=== PATIENT | female | born 1995 | race Caucasian/White ===

== ENCOUNTER 2016-10-24 16:21 | Emergency (ER) | payer OTHER ==
[2016-10-24 16:33] VITALS: BP 146/73
[2016-10-24] MEDS ORDERED: KETOROLAC TROMETHAMINE 60 MG/2 ML VIAL IM ONE ×2 (17:11→17:18)
--- NOTE | 2016-10-24 17:27 | ERNOTE ---
Lower Extremity HPI - Narrative Date of Service: 10/24/16 - General Lower Extremities Pain: knee: left, thigh: left Time Seen by Provider: 10/24/16 17:02 Source: patient, RN notes reviewed Exam Limitations: no limitations - Immun/Allergies/Home Medications Immunizations: IMMUNIZATION HX Immunizations Up to Date Yes History of Influenza Vaccine Yes Allergies/Adverse Reactions: Allergies Allergy/AdvReac Type Severity Reaction Status Date / Time amoxicillin Allergy Verified 10/24/16 16:34 Sulfa (Sulfonamide Allergy Verified 10/24/16 16:34 Antibiotics) Home Medications: HOME MEDICATIONS Cyclobenzaprine HCl [Flexeril] 10 mg PO TID PRN #30 tab 10/24/16 [Last Taken Unknown] Ibuprofen [Motrin] 600 mg PO Q6H PRN #40 tab 10/24/16 [Last Taken Unknown] - History of Present Illness Narrative: 20 y/o female ambulatory to the ED for pain in her left knee that began yesterday. There was no injury, nor has she had problems with this knee in the past. Later in the day, her pain began radiating up the lateral thigh, into her back. She is now having pain in the right lumbar region. She has been taking ibuprofen for pain without improvement. Occurred: yesterday Method of Injury: Reports: no apparent injury Subsequent Symptoms: Denies: sensory loss, numbness, motor loss Prior Treament: Denies: similar symptoms before Review of Systems - Review of Systems Constitutional: Absent: recent illness, fever, chills EYE: Present: no symptoms reported ENT: Present: no symptoms reported Respiratory: Absent: shortness of breath, cough Cardiology: Absent: chest pain, edema Gastrointestinal/Abdominal: Present: no symptoms reported Genitourinary: Present: hematuria. Absent: other - possible Musculoskeletal: Present: back pain, muscle pain, joint pain. Absent: muscle stiffness, neck pain, joint swelling Skin: Absent: rash, lesions, lumps Neurological: Absent: headache, dizziness/light-headedness, weakness, numbness, tingling Endocrine: Present: no symptoms reported Hematologic/Lymphatic: Present: no symptoms reported Psych: Present: no symptoms reported - Patient's Past Medical History Patient History - Medical: No pertinent hx Patient History - Cardiac/Respiratory: No pertinent hx Patient History - Cancer: No Hx of Cancer Patient History - Surgical Procedures: Cholecystectomy LMP (Calendar): 09/25/16 - Social History Living Situations: home Smoking Status: Current every day smoker Cigarettes Packs Per Day: 1 Alcohol Use: none Drug Use: none - Immunizations Immunizations Up to Date: Yes History of Influenza Vaccine: Yes Physical Exam - Physical Exam General Appearance: Present: wd/wn, alert, no apparent distress, obese Neck: Present: normal inspection, nontender, supple Respiratory: Present: no respiratory distress, normal breath sounds, no accessory muscle use, lungs clear Cardiovascular/Chest: Present: regular rate, rhythm, no murmur, normal peripheral pulses Back Exam: Present: no CVA tenderness, no vertebral tenderness, decreased range of motion, other - tenderness with palpation of left lumbar region, straight leg raise positive at 30 degrees Extremity Exam: Present: normal range of motion, no edema, other - diffuse tenderness to palpation of left knee and lateral thigh. Absent: joint redness, joint swelling, extremity edema Neurological Exam: Present: alert, oriented, normal mood/affect, no motor/ sensory deficits Skin Exam: Present: normal color, warm/dry ED Progress - Vital Signs Patient's Vital Signs:: I have reviewed the patient's vital signs. Vital Signs: Vital Signs 10/24/16 16:29 Temperature 36.6 C Pulse Rate 71 Respiratory 16 Rate Blood Pressure 146/73 O2 Sat by Pulse 98 Oximetry - Progress/Reassessment Chief Complaint: Lower Extremity Pain/ Injury Progress:: Unchanged Departure Clinical Impression: Lumbar back pain Qualifiers: Chronicity: acute Back pain laterality: left Sciatica presence: with sciatica Sciatica laterality: sciatica of left side Qualified Code(s): M54.42 - Lumbago with sciatica, left side Knee pain, left Qualifiers: Chronicity: acute Qualified Code(s): M25.562 - Pain in left knee - Departure Disposition: Home self-care Condition: Good Instructions: Muscle Strain, [id number] Additional Instructions: Ice or heat to sore areas Make sure you take ibuprofen with food Flexeril will cause drowsiness Follow up with your doctor if symptoms continue Prescriptions: Cyclobenzaprine HCl [Flexeril] 10 mg PO TID PRN #30 tab PRN Reason: MUSCLE SPASMS Ibuprofen [Motrin] 600 mg PO Q6H PRN #40 tab PRN Reason: Pain
--- OUTSIDE RECORDS SUMMARY | 2016-10-24 21:35 | XMS REPORT | Continuity of Care Document ---
:1995 Author Organization [email or web address] [place] [address] Care Team Providers Name Role Phone Ross Urban Primary Care Provider [phone] Source Comments This disclosure is being made pursuant to the [employer] program and maynot contain all information available regarding this patient.[email or web address] Active Allergies and Adverse Reactions Allergen Noted Date Severity Reactions Comments Amoxicillin 11/07/2013 Low Rash Sulfa Antibiotics 11/07/2013 Low Rash Current Medications Be aware that medications may not be up to date as of this document. Alwaysverify current medications with the patient. Prescription Sig. Disp. Refills Start Date End Date Status benzonatate (TESSALON) Take 1 capsule by 21 capsule 0 10/13/2015 Active 200 MG capsule mouth 3 (three) times daily as needed for Cough. triamcinolone Apply topically 30 g 0 10/13/2015 Active (KENALOG) 0.1 % cream 2 (two) times daily. Apply to affected areas. Do not use longer than 2 weeks. acetaminophen Take 1,000 mg by Active (TYLENOL) 500 MG mouth every 6 tablet (six) hours as needed for Pain. Active Problems Problem Noted Date Nondependent alcohol abuse 02/12/2013 Overview: Overview: Anxiety state 01/24/2012 Overview: Overview: ROSS URBAN MD Attention deficit disorder with hyperactivity(314.01) 01/24/2012 Overview: Overview: ROSS URBAN MD Depressive disorder 01/24/2012 Overview: Overview: ROSS URBAN MD General counseling and advice for contraceptive management 03/03/2011 Overview: Overview: CAITLIN CANTOR MD Acne 10/03/2010 Overview: Overview: ROSS URBAN MD Migraine without aura 06/08/2008 Overview: Overview: ROSS URBAN MD Immunizations Name Dates Previously Given Next Due DTP 07/26/1998 DTP / HiB 05/22/1996,04/09/1996,01/23/1996 HPV Quadrivalent 03/28/2011,11/14/2010,09/16/2010 Hepatitis B 05/22/1996,01/23/1996,1995 HiB PRP-T 07/26/1998 MMR 07/26/1998,04/13/1997 Meningococcal Conjugate 10/03/2010 OPV 05/22/1996,04/09/1996,01/23/1996 Tdap 03/13/2014,10/03/2010 Varicella 10/03/2010,07/26/1998 Social History Tobacco Use Types Packs/Day Years Used Date Current Every Day Smoker 1 Smokeless Tobacco: Never Used Tobacco Cessation:Counseling Given: Yes Comments: Alcohol Use Drinks/Week oz/Week Comments No Alcoholic Drinks/day: No: Noted on [id number] Last Filed Vital Signs Vital Sign Reading Time Taken Blood Pressure 136/87 11/11/2015 10:20 AM CDT Pulse 97 11/11/2015 10:20 AM CDT Temperature 37 C (98.6 F) 11/11/2015 10:20 AM CDT Respiratory Rate 16 06/18/2015 8:41 AM [facility] Height 1.676 m (5' 5.98") 11/11/2015 10:20 AM CDT Weight 105.461 kg (232 lb 8 oz) 11/11/2015 10:20 AM CDT Body Mass Index 37.54 11/11/2015 10:20 AM CDT Oxygen Saturation 97% 11/11/2015 10:20 AM CDT Plan of Care Health Maintenance Due Date Last Done Comments Chlamydia Screening 2011 Meningococcal Vaccine (2 of 2011 10/03/2010 2) Pneumococcal Medium Risk 11/17/2014 19-64 yo (1 of 1 - PPSV23) Influenza Immunization (#1) 2016 Tetanus/Pertussis (3 - Td) 03/13/2024 03/13/2014, Additional history exists 10/03/2010, 07/26/1998 HPV Vaccine (9-26YO) Completed 03/28/2011, 11/14/2010, 09/16/2010 Results from Last 3 Months Not on file
== END 2016-10-24 17:37 | disposition home or self-care (01) ==
LOC: ER 16:21
DX: M25.562 Pain in left knee (principal); M54.42 Lumbago with sciatica, left side; F17.210 Nicotine dependence, cigarettes, uncomplicated

== ENCOUNTER 2017-06-17 18:27 | Emergency (ER) | payer OTHER ==
[2017-06-17] MEDS ORDERED: hydrOXYzine PAMOATE 25 MG CAPSULE PO ONE (18:47)
[2017-06-17] MEDS ORDERED: hydrOXYzine PAMOATE 25 MG CAPSULE ONE (18:54)
--- NOTE | 2017-06-17 18:56 | ERNOTE ---
Psychological HPI - General Chief Complaint: Anxiety Source: Reports: patient Exam Limitations: Reports: no limitations - Immun/Allergies/Home Medications Allergies/Adverse Reactions: Allergies amoxicillin Allergy (Verified 10/24/16 16:34) Sulfa (Sulfonamide Antibiotics) Allergy (Verified 10/24/16 16:34) Home Medications: HOME MEDICATIONS hydrOXYzine PAMOATE [Vistaril] 50 mg PO TID PRN #30 cap 06/17/17 [Last Taken Unknown] - History of Present Illness Narrative: Patient states that she began having panic attacks of unknown etiology for the past 3-4 weeks. She states she feels like she hyperventilates and her heart starts racing and as well as her mind. Time Seen by Provider: 06/17/17 18:45 Arrived by: Reports: private car Onset/duration: Reports: gradual onset Intent: Reports: no prior thoughts-suicide Associated Symptoms: Reports: other - patient denies any other thoughts other than just the panic Review of Systems - Review of Systems Constitutional: Present: See HPI EYE: Present: no symptoms reported ENT: Present: no symptoms reported Respiratory: Present: no symptoms reported Cardiology: Present: no symptoms reported Gastrointestinal/Abdominal: Present: no symptoms reported Genitourinary: Present: no symptoms reported Musculoskeletal: Present: no symptoms reported Skin: Present: no symptoms reported Neurological: Present: no symptoms reported Endocrine: Present: no symptoms reported Hematologic/Lymphatic: Present: no symptoms reported Psych: Present: anxiety - Patient's Past Medical History Patient History - Medical: Anxiety, Depression Patient History - Cardiac/Respiratory: No pertinent hx Patient History - Cancer: No Hx of Cancer Patient History - Surgical Procedures: Cholecystectomy Patient History - Other: None LMP (females 10-50): 3 weeks - Social History Living Situations: home Abuse History: No History of abuse Psych History: Hx of Anxiety, Hx of Depression Smoking Status: Current every day smoker Have you smoked in the past 12 months: Yes Do you dip or chew tobacco: No Alcohol Use: rarely Drug Use: none - Immunizations Immunizations Up to Date: Yes Hx Pneumococcal Vaccination: No History of Influenza Vaccine: No Psychological Exam - Exam General Appearance: Present: wd/wn, alert, moderate distress Head Exam: Present: normal inspection, no evidence of injury Neurological: Present: alert, oriented x 3, anxious Thoughts/Hallucinations: Present: normal thought pattern, no apparent hallucination Behavior/Eye Contact/Speech: Present: cooperative, good eye contact, normal speech ENT Exam normal except (see below): Yes Ears, Nose, Throat: Present: normal ENT inspection Neck: Present: normal inspection, nontender Respiratory: Present: no respiratory distress, normal breath sounds, no accessory muscle use Cardiovascular/Chest: Present: regular rate, rhythm, no murmur, normal peripheral pulses Gastrointestinal/Abdominal: Present: normal bowel sounds, nontender, soft Rectal Exam: Present: deferred Pelvic Exam: Present: deferred Back Exam: Present: normal inspection Extremity Exam: Present: normal inspection, non-tender Skin Exam: Present: normal color, warm/dry Lymphatic Exam: Present: no adenopathy ED Progress - Vital Signs Patient's Vital Signs:: I have reviewed the patient's vital signs. Vital Signs: Vital Signs 06/17/17 18:34 Temperature 36.6 C Pulse Rate 108 H Respiratory 18 Rate Blood Pressure 164/92 O2 Sat by Pulse 96 Oximetry - Progress/Reassessment Chief Complaint: Anxiety Plan - Plan Plan: Patient apparently has history of free floating anxiety and was treated for this while she was in high school however improved. She is not exactly certain what happened over the last 3-4 weeks for her anxiety kicked back in, however she is back into her anxious state much like she was she was in high school. He did try starting the patient on Vistaril 50 mg up to 3 times a day as needed for anxiety and she will be given Zuly Price's phone number to call. Departure Clinical Impression: Anxiety - Departure Disposition: Home self-care Condition: Good Instructions: Panic Attacks, [id number] Additional Instructions: Call Zuly Ulloa for appointment Referrals: Zuly Ulloa [facility] - Prescriptions: hydrOXYzine PAMOATE [Vistaril] 50 mg PO TID PRN #30 cap PRN Reason: Anxiety
[2017-06-17 19:33] VITALS: BP 155/96
== END 2017-06-17 19:10 | disposition home or self-care (01) ==
LOC: ER 18:27
DX: F41.8 Other specified anxiety disorders (principal)